=== PATIENT | male | born 1955 | race Caucasian/White ===

== ENCOUNTER 2025-08-18 20:40 | Outpatient (CLI) | payer MEDICARE, SELFPAY | END 2025-08-18 20:41 | disposition home or self-care (01) | LOC: AMB 08-23 08:52 | PROVIDERS: Visit Provider Emergency Medicine Emergency Medical Services | DX: M25.562 Pain in left knee (principal); R53.1 Weakness; R62.7 Adult failure to thrive | CPT/HCPCS: A0425; A0427 ==